=== PATIENT | male | born 1950 | race Caucasian/White ===

== ENCOUNTER 2016-07-13 09:00 | Day surgery (SDC) | payer MEDICARE ==
[~2016-07-13] VITALS: Ht 188 cm
--- NOTE | 2016-07-14 07:52 | OR ---
ADMIT: 07/13/2016 RM/LOC: [facility] MR#: [id number] [address] [address] RICKS ROBIN Gutierrez [address] [place] [address] Operative/Delivery Room Report SEX: M AGE: 65 : 1950 SURGERY DATE: 07/13/2016 SURGEON: Jessica Lo MD AUDIO/VIDEO ENGINEER: None. PREPROCEDURE DIAGNOSES: 1. Lumbar disk degeneration. 2. Lumbosacral neuritis. POSTPROCEDURE DIAGNOSES: 1. Lumbar disk degeneration. 2. Lumbosacral neuritis. PROCEDURE PERFORMED: L5-S1 interlaminar epidural steroid injection. INDICATIONS FOR PROCEDURE: The patient is a pleasant gentleman with history of chronic low back pain, secondary to above mentioned diagnoses, comes here for planned lumbar epidural steroid injection. ANESTHESIA: Local without sedation. ESTIMATED BLOOD LOSS: Zero. COMPLICATIONS: None immediately evident. DESCRIPTION OF PROCEDURE: After the patient was seen in the preoperative area, vitals signs were taken. Prior to the procedure, the risks, benefits, and alternative therapies were discussed at length. Patient consent was obtained and updated. The patient was taken to the fluoroscopy suite and placed on the fluoroscopy table in the prone position. Pressure points were padded to comfort, monitors applied, and a timeout performed. Fluoroscopy was brought in. The patient was sterilely prepped and draped in the usual manner with ChloraPrep solution, and 1% lidocaine was used to anesthetize the appropriate needle entry site. Utilizing a midline approach, ADMIT: 07/13/2016 RM/LOC: [facility] MR#: [id number] [address] [address] ROBIN RICKS [place] [address] Operative/Delivery Room Report SEX: M AGE: 65 : 1950 continuous loss of resistance technique with preservative-free normal saline and intermittent fluoroscopic guidance, the posterior epidural space was easily entered. Once the epidural space had been entered through L5-S1. The patient was injected with 2 mL of Isovue-300 and outlining of the posterior epidural space was observed with no evidence of vascular uptake and intrathecal migration. Next, a solution consisting of 10 mL of preservative- free normal saline and 80 mg of Depo-Medrol was injected. The needle was withdrawn. The patient was escorted back to the preoperative area and observed for a period of time. PLAN: Discharge instructions were given, followup scheduled. 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 Jessica Lo MD/ praveen JOB #: [id number] CC: Jessica Lo, Attending Physician Toi Collins, Family Physician
== END 2016-07-13 10:40 | disposition home or self-care (01) ==
LOC: SSS 09:00
PROC: 3E0S3BZ Introduction of Anesthetic Agent into Epidural Space, Percutaneous Approach (ICD-10-PCS; principal; 2016-07-13)
PROC: 3E0S33Z Introduction of Anti-inflammatory into Epidural Space, Percutaneous Approach (ICD-10-PCS; principal; 2016-07-13)
PROC: B01BYZZ Fluoroscopy of Spinal Cord using Other Contrast (ICD-10-PCS; principal; 2016-07-13)
DX: G89.29 Other chronic pain (principal); M51.17 Intervertebral disc disorders with radiculopathy, lumbosacral region; I48.91 Unspecified atrial fibrillation; E78.6 Lipoprotein deficiency; I10 Essential (primary) hypertension; G47.30 Sleep apnea, unspecified; Z98.890 Other specified postprocedural states

== ENCOUNTER 2016-08-28 17:41 | Emergency (ER) | payer MEDICARE ==
--- NOTE | 2016-08-30 08:16 | ER ---
ADMIT: 08/28/2016 RM/LOC: ER [facility] MR#: [id number] [facility] [address] [place] [id number] IKE RICKSMOND Matt [address] [place] [address] Emergency Room Report SEX: M AGE: 65 : 1950 DATE: 08/28/2016 ADDENDUM: This 65-year-old white male coming in after he catching his ear on a door. He has a laceration on the inside of his right pinna. He is also on Coumadin. This was kind of oozing, so I used some topical epinephrine, which seemed to stop it and some Dermabond to close this. Bleeding stopped. This held laceration without sticking or disrupting the skin with a suture needle. I was afraid that it would just continue to bleed. Do not see a hematoma here. He was allowed to use a cool compress on this. Hold the Coumadin tomorrow morning. Follow up if condition changes. CONDITION ON DISCHARGE: Good. Jose Gilmore MD/ praveen JOB #: [id number] CC: Jose Gilmore MD, Attending Physician
== END 2016-08-28 18:16 | disposition home or self-care (01) ==
LOC: ER 17:41
PROC: 0HQ2XZZ Repair Right Ear Skin, External Approach (ICD-10-PCS; principal; 2016-08-28)
DX: S01.311A Laceration without foreign body of right ear, initial encounter (principal); I10 Essential (primary) hypertension; Z79.01 Long term (current) use of anticoagulants; W23.1XXA Caught, crushed, jammed, or pinched between stationary objects, initial encounter